=== PATIENT | male | born 1955 | race Caucasian/White ===

== ENCOUNTER 2024-12-02 12:55 | Outpatient (RCR) | payer MEDICARE, BC, SELFPAY ==
[2024-12-02 14:21] LABS: Creatinine* 0.8 mg/dL (0.5-1.5); Est. Creatinine Clearance* 71.99; Estimated Glomerular Filt Rate 96 ml/min
== END 2025-05-31 23:59 | disposition home or self-care (01) ==
LOC: CCIC 12:55
PROVIDERS: Visit Provider Clinical Nurse Specialist
DX: C61 Malignant neoplasm of prostate (principal)
CPT/HCPCS: 36415; 82565; 99211

== ENCOUNTER 2024-12-02 13:06 | Outpatient (CLI) | payer MEDICARE, BC, SELFPAY | END 2024-12-02 13:07 | disposition home or self-care (01) | LOC: MRI 13:06 | PROVIDERS: Visit Provider Radiology Radiation Oncology | DX: C61 Malignant neoplasm of prostate (principal) | CPT/HCPCS: 36415; 72195; 82565; 99211 ==